=== PATIENT | male | born 1955 | race Caucasian/White ===

== ENCOUNTER 2020-02-07 11:09 | Outpatient (CLI) | payer MEDICARE, SELFPAY ==
--- NOTE | ~2020-02-07 | XR_ITS ---
XR abdomen obstructive series DATE: 02/07/2020 11:34 INDICATION: Constipation. Intermittent nausea and vomiting for 4 months TECHNIQUE: Supine and upright AP views COMPARISON: 08/09/2019 obstructive series FINDINGS: Again noted are multiple gas-containing small bowel segments overlying the left upper and m idabdomen in particular. There is a prominent amount of fecal material in the right colon. No intrape ritoneal free air is evident. The psoas shadows are intact. No visceromegaly is detected. Included skeletal structures are unremarkable other than some degenerative changes of the lumbar spin e. IMPRESSION: Nonspecific nondilated gas containing small bowel segments overlying left upper and mid a bdomen, which may represent mild adynamic ileus or mild partial small bowel obstruction; little inter sacha change since 08/09/2019 Reviewed, dictated and finalized at [facility]. Reviewed, dictated and finalized at location [facility]. IMPRESSION: Nonspecific nondilated gas containing small bowel segments overlyin g left upper and mid abdomen, which may represent mild adynamic ileus or mild p artial small bowel obstruction; little interval change since 08/09/2019
[2020-02-07 11:29] LABS: Add Urine Microscopic? YES; Appearance Urine Clear (Clear); Bilirubin Urine Negative (Negative); Blood Urine 1+ (Negative); Color Urine Amber (Yellow); Glucose Urine UA Negative (Negative); Ketones Urine Negative (Negative); Leukocyte Esterase Ur Negative (Negative); Nitrate Urine Negative (Negative); Protein Urine Trace (Negative); Urobilinogen Urine 0.2 mg/dL (0.2-1.0); pH Urine 6.5 (5.0-8.0)
[2020-02-07 11:32] LABS: Bacteria Urine Trace /hpf; Squamous Epithelial Cell Urine Rare /hpf (Few); WBC Urine None seen /hpf (0-3)
[2020-02-07 11:33] LABS: Mucus Urine Few /lpf
[2020-02-07 12:02] LABS: Alanine Aminotransferase 24 U/L (16-63); Albumin Level 2.8 g/dL (3.4-5.0); Alkaline Phosphatase 101 U/L (46-116); Anion Gap 12.4 mmol/L (7-16); Aspartate Amino Transferase 26 U/L (15-37); Bilirubin,Total 0.7 mg/dL (0.00-1.00); Blood Urea Nitrogen 30 mg/dL (7-18); Calcium 8.8 mg/dL (8.5-10.1); Carbon Dioxide 29 mmol/L (21-32); Chloride 103 mmol/L (98-108); Estimated Glomerular Filt Rate > 60; Glucose 87 mg/dL (70-99); Osmolality Calculated 295 mOsm/kg (285-295); Potassium 4.4 mmol/L (3.5-5.1); Sodium 140 mmol/L (136-145); Thyroid Stimulating Hormone 10.17 uIU/mL (0.36-3.74); Total Protein 6.3 g/dL (6.4-8.2)
== END 2020-02-07 11:10 | disposition home or self-care (01) ==
PROVIDERS: PCP Family Medicine; Visit Provider Family Medicine
DX: R41.82 Altered mental status, unspecified (principal); E03.8 Other specified hypothyroidism; R30.0 Dysuria
CPT/HCPCS: 36415; 74019; 80053; 81001; 84443; 87086

== ENCOUNTER 2020-02-21 14:36 | Outpatient (CLI) | payer MEDICARE, SELFPAY ==
--- NOTE | ~2020-02-21 | XR_ITS ---
EXAMINATION: XR chest 2V DATE: 02/21/2020 14:52 INDICATION: Cough and shortness of breath TECHNIQUE: Frontal and lateral views of the chest are obtained COMPARISON: 09/10/2019 FINDINGS: There are subtle opacities in the mid and lower lung zones, left greater than right. A righ t subclavian Port-A-Cath ends with its tip in the distal superior vena cava. There is no pleural effu alanna or pneumothorax. The cardiomediastinal silhouette is normal. There is mild thoracic spondylosis. Healed right-sided rib fractures are noted. IMPRESSION: 1. Subtle opacities in the mid and lower lung zones, left greater than right, consistent with atelect asis versus pneumonia. Reviewed, dictated and finalized at location [facility]. IMPRESSION: 1. Subtle opacities in the mid and lower lung zones, left greater than right, c onsistent with atelectasis versus pneumonia.
[2020-02-21 14:46] LABS: Hematocrit 31.8 % (40.0-54.0); Hemoglobin 10.1 g/dL (14.0-18.0); Mean Corpuscular HGB Conc 31.8 g/dL (32.0-36.0); Mean Corpuscular Volume 107.1 fL (78.0-102.0); Mean Platelet Volume 10.7 fl (8.7-11.0); Platelet Count Result 313 K/mm3 (150-420); Red Blood Count 2.97 M/mm3 (4.70-6.10); Red Cell Distribution Width 20.4 % (11.6-14.4); White Blood Count 5.2 K/mm3 (4.8-10.8)
[2020-02-21 15:04] LABS: Total Cells Counted 100
[2020-02-21 15:05] LABS: Band Neutrophils Percent 0 % (0-6); Basophils Percent Manual 0 % (0-1); Eosinophils Absolute Manual 0.05 K/mm3 (0.02-0.5); Eosinophils Percent Manual 1 % (1-6); Lymphocytes Absolute Manual 0.46 K/mm3 (1.1-4.5); Lymphocytes Percent Manual 9 % (18-44); Monocytes Absolute Manual 0.72 K/mm3 (0.1-0.90); Monocytes Percent Manual 14 % (3-9); Neutrophils Absolute Manual 3.95 K/mm3 (1.3-6.7); Neutrophils Percent Manual 76 % (46-73); Platelet Estimate Adequate (Adequate)
[2020-02-21 15:43] LABS: Alanine Aminotransferase 27 U/L (16-63); Alkaline Phosphatase 114 U/L (46-116); Anion Gap 10.4 mmol/L (7-16); Aspartate Amino Transferase 21 U/L (15-37); Bilirubin,Total 0.6 mg/dL (0.00-1.00); Blood Urea Nitrogen 14 mg/dL (7-18); Calcium 8.8 mg/dL (8.5-10.1); Carbon Dioxide 29 mmol/L (21-32); Chloride 104 mmol/L (98-108); Estimated Glomerular Filt Rate > 60; Glucose 115 mg/dL (70-99); Osmolality Calculated 289 mOsm/kg (285-295); Potassium 4.4 mmol/L (3.5-5.1); Sodium 139 mmol/L (136-145); Total Protein 6.2 g/dL (6.4-8.2)
== END 2020-02-21 14:37 | disposition home or self-care (01) ==
LOC: CHSLAB 14:38
PROVIDERS: PCP Family Medicine; Visit Provider Family Medicine
DX: R05 Cough (principal)
CPT/HCPCS: 36415; 71046; 80053; 85025

== ENCOUNTER 2020-03-12 11:43 | Emergency (ER) | payer MEDICARE, SELFPAY ==
[2020-03-12 12:22] VITALS: BP 128/67; PULSE 74; RESP 14; TEMP 36.7; O2SAT 98
--- NOTE | 2020-03-12 12:48 | ED.GENADULT ---
HPI - General Adult General Chief complaint: Unspecified Stated complaint: inhaler ran out Time Seen by Provider: 03/12/20 12:48 Source: patient Mode of arrival: ambulatory Limitations: no limitations History of Present Illness HPI narrative: Suresh Krause is a 64 yo male with a history of DM, throat CA, COPD, who comes to express care for renewal of inhaler. Related Data Home Medications Medication Instructions Recorded Confirmed albuterol sulfate 90 mcg/actuation 1 inhalation INHALATION Q4-6H PRN 12/13/19 03/12/20 breath activated powder inhaler,sensor clopidogrel 75 mg tablet 75 mg PO DAILY 12/13/19 03/12/20 fluoxetine 10 mg capsule 10 mg PO DAILY 12/13/19 03/12/20 gemfibrozil 600 mg tablet 600 mg PO BID 12/13/19 03/12/20 glimepiride 4 mg tablet 4 mg PO QAM 12/13/19 03/12/20 levothyroxine 200 mcg capsule 200 mcg PO DAILY 12/13/19 03/12/20 lovastatin 40 mg tablet 40 mg PO DAILY 12/13/19 03/12/20 metformin 1,000 mg tablet 1,000 mg PO BID 12/13/19 03/12/20 montelukast 10 mg tablet 10 mg PO DAILY 12/13/19 03/12/20 omeprazole 20 mg capsule,delayed 20 mg PO DAILY 12/13/19 03/12/20 release verapamil 180 mg 24 hr 180 mg PO DAILY 12/13/19 03/12/20 capsule,extended release Allergies Allergy/AdvReac Type Severity Reaction Status Date / Time Penicillins Allergy Severe Anaphylactic Verified 03/12/20 12:35 Shock Sulfa (Sulfonamide Allergy Intermediate Rash Verified 03/12/20 12:35 Antibiotics) erythromycin base Allergy Mild ??? Verified 03/12/20 12:35 RIDIMYCIN---PT UNABLE TO Allergy Mild Unknown Uncoded 12/13/19 10:16 GIVE CORRECT SPELLING Review of Systems Review of Systems: Narrative: CONSTITUTIONAL: Denies fever, chills, sweats. EYES: Denies visual changes, redness, discharge. ENT: Denies rhinorrhea, congestion, sore throat, otalgia. CARDIOVASCULAR: Denies chest pain, palpitations, edema. RESPIRATORY: Has dyspnea, has wheezing, no cough uses albuterol to control the symptoms GASTROINTESTINAL: Denies abdominal pain, nausea, vomiting, diarrhea. GENITOURINARY: Denies dysuria, hematuria, abnormal discharge SKIN: Denies rash or itching. NEUROLOGIC: Denies numbness, or focal weakness. PSYCHIATRIC: Denies anxiety or depression. [facility] Family History Family History Other Diabetes mellitus Heart disease Hypertension Social History Social History (Updated 03/12/20 @ 12:55 by Lola Pascal CNP) Smoking packs per day: 0.5 Smoking cigarettes per day: 10.0 Smoking status: Current every day smoker Tobacco type: cigarettes Alcohol intake: never Exam Narrative: Exam Narrative: GENERAL: Frail, pale, well-developed patient, in mild distress. HEAD: normocephalic, atraumatic. EYES: Sclera clear/white. Vision is grossly intact. EARS: External ears normal. Hearing grossly intact. NOSE: External nose normal without nasal discharge, nares without redness, no rhinorrhea. THROAT: Mucous membranes moist, NECK: Neck supple, CARDIOVASCULAR: Regular rate and rhythm without murmurs, gallops, or rubs. RESPIRATORY: Diminished to auscultation. Decreased breath sounds equal bilaterally. RR30 Has wheezes, no rales, or rhonchi. GASTROINTESTINAL: Abdomen soft, SKIN: warm, intact with no suspicious lesions or rash, good texture and turgor. NEURO: awake, alert, and oriented to person, place and time. There were no obvious focal neurologic abnormalities. Steady gait EXTREMITIES: Normal range of motion. BACK: Nontender without deformity Course Course Emergency Course: Renewed albuterol inhaler with a single refill. Patient is aware of the effects of his smoking on his COPD and has current diagnosis of throat cancer, is having some difficulties with nutrition but will continue to discuss this with his chemo doctor Vital Signs Vital signs: Vital Signs Temperature 98.0 F 03/12/20 12:22 Pulse Rate 74 03/12/20 12:22 Respiratory Rate 14
== END 2020-03-12 13:04 | disposition home or self-care (01) ==
PROVIDERS: Emergency Provider Nurse Practitioner; PCP Family Medicine
DX: J43.9 Emphysema, unspecified (principal); F17.210 Nicotine dependence, cigarettes, uncomplicated; E11.8 Type 2 diabetes mellitus with unspecified complications; C14.0 Malignant neoplasm of pharynx, unspecified
CPT/HCPCS: 99213; G0463

== ENCOUNTER 2020-03-13 14:30 | Outpatient (CLI) | payer MEDICARE, SELFPAY ==
--- NOTE | 2020-03-13 14:30 | ECHO_ITS ---
Patient Info Name: Suresh Krause Age: 64 years : 1955 Gender: Male Ht: 72 in Wt: 185 lbs BSA: 2.07 m2 HR: 70 bpm BP: 146 / 72 mmHg Heart Rhythm: Sinus Rhythm Technical Quality: Good Exam Date: 03/13/2020 2:42 PM Exam Location: [facility], [place] Patient Status: Outpatient Admit Date: 03/13/2020 Staff Ordering Physician: Manish Diallo MD Curtain Fitter: Kam Byrnes RDCS Attending Provider: Manish Diallo MD Referring Physician: Imani PEARCE; Exam Type: CA echo doppler color flow Study Info Indications I10 - Essential (primary) hypertension Complete two-dimensional, color flow and Doppler transthoracic echocardiogram is performed. Strain analysis performed. History/Risk Factors Hypertension; COPD. Summary 1. Left ventricular systolic function is normal with estimated at 50-55%. 2. Left ventricular chamber dimension is moderately enlarged. 3. Left ventricular septal wall motion is abnormal with septal motion related to bundle branch block. 4. The left ventricular diastolic function is grade I diastolic dysfunction. 5. E/e' 11 is mildly elevated. 6. Global longitudinal strain is abnormal at -13.8%. 7. Left atrial chamber dimension is moderately enlarged. 8. There is mild aortic valve sclerosis. 9. There is mild aortic valve regurgitation. 10. There is trace mitral valve regurgitation. 11. There is trace tricuspid valve regurgitation. 12. No pulmonary hypertension, estimated pulmonary arterial systolic pressure is 37 mmHg. Left Ventricle E/e' 11 is mildly elevated. Global longitudinal strain is abnormal at -13.8%. Left ventricular systolic function is normal with estimated at 50-55%. Left ventricular chamber dimension is moderately enlarged. Left ventricular septal wall motion is abnormal with septal motion related to bundle branch block. The left ventricular diastolic function is grade I diastolic dysfunction. Right Ventricle Right ventricular chamber dimension is normal. Right ventricular systolic function is normal. Left Atria Left atrial chamber dimension is moderately enlarged. Right Atria Right atrial chamber dimension is normal. Aortic Valve The aortic valve is trileaflet. There is mild aortic valve sclerosis. There is no aortic valve stenosis. There is mild aortic valve regurgitation. Pulmonic Valve There is no pulmonic regurgitation. Mitral Valve There is no mitral valve stenosis. There is trace mitral valve regurgitation. Tricuspid Valve There is trace tricuspid valve regurgitation. No pulmonary hypertension, estimated pulmonary arterial systolic pressure is 37 mmHg. Pericardium/Pleural There is no pericardial effusion. Inferior Vena Cava Normal inferior vena cava with >50% collapse upon inspiration consistent with normal right atrial pressure, 5 mmHg. Aorta The aortic root size at the sinus of Valsalva is normal. Left Ventricular Outflow Tract Name Value Normal LVOT 2D LVOT Diameter 1.9 cm LVOT Doppler LVOT Peak Velocity 128 cm/s LVOT Peak Gradient 7 mmHg LV
== END 2020-03-13 14:31 | disposition home or self-care (01) ==
PROVIDERS: PCP Family Medicine; Visit Provider Family Medicine
DX: I10 Essential (primary) hypertension (principal)
CPT/HCPCS: 93306

== ENCOUNTER 2020-03-17 10:49 | Outpatient (CLI) | payer MEDICARE, SELFPAY ==
[2020-03-17 12:09] LABS: Anion Gap 10.7 mmol/L (7-16); Carbon Dioxide 29 mmol/L (21-32); Chloride 105 mmol/L (98-108); Potassium 4.7 mmol/L (3.5-5.1); Sodium 140 mmol/L (136-145)
[2020-03-17 12:10] LABS: Blood Urea Nitrogen 14 mg/dL (7-18); Estimated Glomerular Filt Rate > 60; Glucose 82 mg/dL (70-99); Osmolality Calculated 289 mOsm/kg (285-295)
== END 2020-03-17 10:50 | disposition home or self-care (01) ==
LOC: CHSLAB 10:51
PROVIDERS: PCP Family Medicine; Visit Provider Family Medicine
DX: R60.0 Localized edema (principal)
CPT/HCPCS: 36415; 80048

== ENCOUNTER 2020-04-07 10:39 | Outpatient (CLI) | payer MEDICARE, SELFPAY ==
[2020-04-07 10:50] VITALS: PULSE 71; O2SAT 94
[2020-04-07 10:51] VITALS: PULSE 81; O2SAT 84
[2020-04-07 10:53] VITALS: PULSE 96; O2SAT 96
--- NOTE | 2020-04-07 11:07 | HOMEO2EVAL ---
Home Oxygen Evaluation RC: Home Oxygen (O2) Evaluation Start: 04/07/20 10:59 Freq: Status: Active Protocol: RPE Activity Type Activity Date Activity User E-Sign Co-Sign Detail Recorded Client Recorded Date Recorded By Document 04/07/20 10:50 ESCOBAR [id number] 04/07/20 11:07 SJB Document 04/07/20 10:51 SJB [id number] 04/07/20 11:07 SJB Document 04/07/20 10:53 SJB [id number] 04/07/20 11:07 SJB 04/07/20 04/07/20 04/07/20 10:50 10:51 10:53 Home O2 Evaluation Test Phase Resting Exercise Exercise Oxygen Delivery Room Air Room Air Nasal Cannula Oxygen Flow Rate (L/min) 2 Pulse Oximetry (90-100 %) 94 84 L 96 Pulse Rate (60-100 beats/min) 71 81 96 Activity Tolerance Fair Poor Rating of Perceived Dyspnea (PD) +2 Mild, Some +3 Moderate +4 Severe Difficulty, Difficulty, But Difficulty, Noticeable to Can Continue Participant the Observer Cannot Continue Rate of Perceived Exertion (PE) 11 Fairly light 13 Somewhat 20 Hard Ambulation Distance (feet) 120 180 Home Oxygen Evaluation Comments 02 started at 2 Pt continued lpm and walk walk up to 180 continued. and then requested to stop and sit in wheelchair. Stated could not go any further. Pts sp02 remained 95-96% at this time on 2 lpm. Heart rate stayed at 96. Treatment Charges O2 Evaluation
== END 2020-04-07 10:40 | disposition home or self-care (01) ==
PROVIDERS: PCP Family Medicine; Visit Provider Family Medicine
DX: R06.02 Shortness of breath (principal)
CPT/HCPCS: 94618

== ENCOUNTER 2020-05-10 09:59 | Outpatient (CLI) | payer MEDICARE, SELFPAY ==
--- NOTE | ~2020-05-10 | XR_ITS ---
EXAMINATION: XR chest 2V DATE: 05/10/2020 10:27 INDICATION: Pleural effusion TECHNIQUE: Frontal and lateral views of the chest are obtained COMPARISON: 02/21/2020 FINDINGS: Interstitial and airspace opacities are present in the mid and lower lung zones. There are small pleural effusions. No pneumothorax is identified. A right internal jugular Port-A-Cath ends wit h its tip in the distal superior vena cava. The cardiomediastinal silhouette is normal. Healed right- sided rib fractures are noted. IMPRESSION: 1. Small pleural effusions. 2. Interstitial and airspace opacities of the mid and lower lung zones, consistent with pulmonary wendy ma and/or pneumonia and/or atelectasis. Reviewed, dictated and finalized at location [facility]. IMPRESSION: 1. Small pleural effusions. 2. Interstitial and airspace opacities of the mid and lower lung zones, consist ent with pulmonary edema and/or pneumonia and/or atelectasis.
== END 2020-05-10 10:00 | disposition home or self-care (01) ==
LOC: CHSIMG 10:01
PROVIDERS: PCP Family Medicine; Visit Provider Family Medicine
DX: J90 Pleural effusion, not elsewhere classified (principal)
CPT/HCPCS: 71046

== ENCOUNTER 2020-07-17 06:10 | Emergency (ER) | payer MEDICARE, SELFPAY ==
--- NOTE | ~2020-07-17 | XR_ITS ---
EXAMINATION: XR shoulder RT min 2V EXAM DATE: 07/17/2020 07:13 INDICATION: Ground-level fall, right shoulder pain, Initial encounter. TECHNIQUE: The following right shoulder projections obtained: frontal projection with internal rotati on, frontal projection with external rotation, Grashey, and scapular Y view (4+ views). There is no prior study for comparison. FINDINGS: Right-sided CT injectable portacatheter. No evidence of right shoulder rotator cuff calcif ic tendinosis. There are no acute fractures or dislocations identified. There is no subcutaneous ga s. The soft tissue is unremarkable. There are no radiopaque foreign bodies. 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 IMPRESSION: 1. Right shoulder exam without acute osseous findings. Reviewed, dictated and finalized at location [facility]. RING DISTRIBUTION CLERK
--- NOTE | ~2020-07-17 | XR_ITS ---
EXAMINATION: XR ribs LT 2V w CXR 2V EXAM DATE: 07/17/2020 07:13 INDICATION: GLF w/ LEft ant TTP . Ground level fall this am left ant superior rib pain. TECHNIQUE: Frontal projection of the upper left ribs, frontal projection of the lower left ribs, obli que projection of the left ribs, frontal and lateral chest x-ray(s) for interpretation. Comparison is made to prior examination from 05/10/2020. FINDINGS: There are no displaced acute left rib fractures identified. There is no soft tissue abnor mality seen. Right 7th and 8th rib fractures which are likely chronic. Small to moderate right-sided subpulmonic pleural effusion, adjacent atelectasis. There is also left basilar subsegmental atelectas is. There is a right-sided portacatheter. Cardiomediastinal silhouette is normal. IMPRESSION: 1. No displaced left rib fractures. Chronic right rib fractures. 2. Small to moderate right subpulmonic pleural effusion. 3. Bibasilar atelectasis. Reviewed, dictated and finalized at location A. ICAL SECRETARY
[2020-07-17 06:28] VITALS: BP 156/87; PULSE 81; RESP 20; TEMP 36.6; O2SAT 100
--- NOTE | 2020-07-17 06:37 | WC.ED.TRAUMA ---
HPI - Trauma General Chief Complaint: Extremity Injury, Upper Stated Complaint: 65 YO male w/ known h.o DMII, COPD, HTN fell over dog hit chest on bed post approx 2 hours before to arrival to ER for eval. PAtient is here w/ his x- c/o Right shoulder and left chest wall pain. Denies LOC or HEad injury Source: patient and family Mode of arrival: ambulatory Limitations: no limitations History of Present Illness MD complaint: fall and pain Onset (ago): hour(s) (2 hours) Loss of Consciousness: no Location: chest Location - Extremities: Right: shoulder (ANterior and lateral) Severity: moderate Severity scale (1-10): 6 Context: fall Associated symptoms: denies other symptoms Related Data Home Medications Medication Instructions Recorded Confirmed albuterol sulfate 90 mcg/actuation 1 inhalation INHALATION Q4-6H PRN 12/13/19 07/17/20 breath activated powder inhaler,sensor clopidogrel 75 mg tablet 75 mg PO DAILY 12/13/19 07/17/20 gemfibrozil 600 mg tablet 600 mg PO BID 12/13/19 07/17/20 glimepiride 4 mg tablet 4 mg PO QAM 12/13/19 07/17/20 levothyroxine 200 mcg capsule 200 mcg PO DAILY 12/13/19 07/17/20 lovastatin 40 mg tablet 40 mg PO HS 12/13/19 07/17/20 metformin 1,000 mg tablet 1,000 mg PO BID 12/13/19 07/17/20 montelukast 10 mg tablet 10 mg PO DAILY 12/13/19 07/17/20 omeprazole 20 mg capsule,delayed 40 mg PO DAILY 12/13/19 07/17/20 release verapamil 180 mg 24 hr 180 mg PO DAILY 12/13/19 07/17/20 capsule,extended release atorvastatin 40 mg PO DAILY 07/17/20 07/17/20 beclomethasone dipropionate [Qvar] 80 mcg INHALATION DAILY 07/17/20 07/17/20 clindamycin phosphate [Clindagel] 1 applic TOPICAL BID 07/17/20 07/17/20 famotidine 20 mg PO DAILY 07/17/20 07/17/20 fluoxetine 20 mg PO DAILY 07/17/20 07/17/20 fluticasone propionate 2 spray INTRANASAL DAILY 07/17/20 07/17/20 levothyroxine 25 mcg PO QAM 07/17/20 07/17/20 lorazepam 0.5 mg PO Q4-6H PRN 07/17/20 07/17/20 montelukast 10 mg PO DAILY 07/17/20 07/17/20 nystatin 15 ml MUCOUS MEMBRANE PRN PRN 07/17/20 07/17/20 ondansetron 8 mg PO Q8H PRN 07/17/20 07/17/20 pioglitazone 30 mg PO DAILY 07/17/20 07/17/20 potassium chloride 10 meq PO DAILY 07/17/20 07/17/20 prochlorperazine maleate 10 mg PO Q6H PRN 07/17/20 07/17/20 [Compazine] triamcinolone acetonide [Kenalog] 1 applic TOPICAL BID 07/17/20 07/17/20 Allergies Allergy/AdvReac Type Severity Reaction Status Date / Time Penicillins Allergy Severe Anaphylactic Verified 03/12/20 12:35 Shock Sulfa (Sulfonamide Allergy Intermediate Rash Verified 03/12/20 12:35 Antibiotics) erythromycin base Allergy Mild ??? Verified 03/12/20 12:35 RIDIMYCIN---PT UNABLE TO Allergy Mild Unknown Uncoded 12/13/19 10:16 GIVE CORRECT SPELLING Review of Systems Constitutional: Constitutional: Reports no additional constitutional complaints Eyes: Eyes: Reports no additional eye complaints ENT: Reports system reviewed and no additional complaints, except as documented Cardiovascular: Cardiovascular: Reports no additional cardiovascular complaints Respiratory: Respiratory: Reports no additional respiratory complaints Gastrointestinal: Gastrointestinal: Reports no additional gastrointestinal complaints Genitourinary: Genitourinary: Reports no additional male genitourinary complaints Musculoskeletal: Musculoskeletal: Reports arthralgias (Right Shoulder Pain, Left CHest pain) Integumentary/Breasts: Skin/Breast: Reports system reviewed and no additional complaints, except as docu Neurologic: Reports system reviewed and no additional complaints, except as documented Psychiatric: Psychiatric: Reports no additional psychiatric complaints Endocrine: Endocrine: Reports no additional endocrine complaints Hematologic/Lymphatic: Hematologic/Lymphatic: Reports no additional hematologic/lymphatic complaints Allergic/Immunologic: Allergic/Immunologic: Reports no additional allergic/immunologic complaints PMFSH Past Medical History M
[2020-07-17 07:40] VITALS: BP 143/84; PULSE 82; RESP 20; O2SAT 96
== END 2020-07-17 07:41 | disposition home or self-care (01) ==
PROVIDERS: Emergency Provider Emergency Medicine; PCP Family Medicine
DX: S20.211A Contusion of right front wall of thorax, initial encounter (principal); S40.011A Contusion of right shoulder, initial encounter; W01.0XXA Fall on same level from slipping, tripping and stumbling without subsequent striking against object, initial encounter
CPT/HCPCS: 71046; 71100; 73030; 99282; 99284

== ENCOUNTER 2020-08-11 16:20 | Outpatient (CLI) | payer MEDICARE, SELFPAY ==
[2020-08-11 17:14] LABS: Influenza Control Valid (Valid); SARS-CoV-2 Ag Negative (Negative)
== END 2020-08-11 16:21 | disposition home or self-care (01) ==
LOC: CHSLAB 16:25
PROVIDERS: PCP Family Medicine; Visit Provider Family Medicine
DX: J00 Acute nasopharyngitis [common cold] (principal); Z20.828 Contact with and (suspected) exposure to other viral communicable diseases
CPT/HCPCS: 87081; 87426; 87804; 87880

== ENCOUNTER 2020-08-29 13:54 | Emergency (ER) | payer MEDICARE, SELFPAY ==
[2020-08-29] VITALS (14 sets, daily range): BP systolic 137–164; BP diastolic 80–114; PULSE 53–82; RESP 12–25; TEMP 36.6; O2SAT 97–100
--- NOTE | 2020-08-29 15:05 | ED.SOB ---
HPI - SOB/Dyspnea General Chief Complaint: Upper Respiratory Infection Stated Complaint: coughing up blood Time Seen by Provider: 08/29/20 13:57 Source: patient, family and RN notes reviewed Mode of arrival: wheelchair Limitations: no limitations History of Present Illness HPI Narrative: patient states that he is coughing today and 3 times he had blood with coughing. He has a history of throat cancer. Recently was told that it was terminal and gave him 6 months to live. There is post be contacting hospice but have not done so yet. When he initially got told about the cancer he had stopped smoking but since he has been told he has terminal he has started smoking again. MD elicited complaint: cough Pertinent past history: COPD Onset (ago): hour(s) (2) Timing: intermittent Severity: moderate Exacerbating factors: coughing Relieving factors: nothing Known history of: COPD and other ( Throat cancer) Treatment prior to arrival: none Related Data Home Medications Medication Instructions Recorded Confirmed albuterol sulfate 90 mcg/actuation 1 inhalation INHALATION Q4-6H PRN 12/13/19 08/29/20 breath activated powder inhaler,sensor clopidogrel 75 mg tablet 75 mg PO DAILY 12/13/19 08/29/20 gemfibrozil 600 mg tablet 600 mg PO BID 12/13/19 08/29/20 glimepiride 4 mg tablet 4 mg PO QAM 12/13/19 08/29/20 levothyroxine 200 mcg capsule 200 mcg PO DAILY 12/13/19 08/29/20 lovastatin 40 mg tablet 40 mg PO HS 12/13/19 08/29/20 metformin 1,000 mg tablet 1,000 mg PO BID 12/13/19 08/29/20 montelukast 10 mg tablet 10 mg PO DAILY 12/13/19 08/29/20 omeprazole 20 mg capsule,delayed 40 mg PO DAILY 12/13/19 08/29/20 release verapamil 180 mg 24 hr 180 mg PO DAILY 12/13/19 08/29/20 capsule,extended release atorvastatin 40 mg PO DAILY 07/17/20 08/29/20 beclomethasone dipropionate [Qvar] 80 mcg INHALATION DAILY 07/17/20 08/29/20 clindamycin phosphate [Clindagel] 1 applic TOPICAL BID 07/17/20 08/29/20 famotidine 20 mg PO DAILY 07/17/20 08/29/20 fluoxetine 20 mg PO DAILY 07/17/20 08/29/20 fluticasone propionate 2 spray INTRANASAL DAILY 07/17/20 08/29/20 levothyroxine 25 mcg PO QAM 07/17/20 08/29/20 lorazepam 0.5 mg PO Q4-6H PRN 07/17/20 08/29/20 montelukast 10 mg PO DAILY 07/17/20 08/29/20 nystatin 15 ml MUCOUS MEMBRANE PRN PRN 07/17/20 08/29/20 ondansetron 8 mg PO Q8H PRN 07/17/20 08/29/20 pioglitazone 30 mg PO DAILY 07/17/20 08/29/20 potassium chloride 10 meq PO DAILY 07/17/20 08/29/20 prochlorperazine maleate 10 mg PO Q6H PRN 07/17/20 08/29/20 [Compazine] triamcinolone acetonide [Kenalog] 1 applic TOPICAL BID 07/17/20 08/29/20 Allergies Allergy/AdvReac Type Severity Reaction Status Date / Time Penicillins Allergy Severe Anaphylactic Verified 03/12/20 12:35 Shock Sulfa (Sulfonamide Allergy Intermediate Rash Verified 03/12/20 12:35 Antibiotics) erythromycin base Allergy Mild ??? Verified 03/12/20 12:35 RIDIMYCIN---PT UNABLE TO Allergy Mild Unknown Uncoded 12/13/19 10:16 GIVE CORRECT SPELLING Review of Systems Constitutional: Constitutional: Denies chills, Denies fever(s) and Reports weakness Eyes: Eyes: Reports no additional eye complaints ENT: Reports system reviewed and no additional complaints, except as documented and Reports as per HPI Cardiovascular: Cardiovascular: Reports no additional cardiovascular complaints Respiratory: Respiratory: Reports as per HPI Gastrointestinal: Gastrointestinal: Reports no additional gastrointestinal complaints Genitourinary: Genitourinary: Reports no additional male genitourinary complaints Musculoskeletal: Musculoskeletal: Reports no additional musculoskeletal complaints Integumentary/Breasts: Skin/Breast: Reports system reviewed and no additional complaints, except as docu Neurologic: Reports system reviewed and no additional complaints, except as documented Psychiatric: Psychiatric: Reports no additional psychiatric complaints Endocrine: Endocrine: Reports no additional
[2020-08-29 15:37] LABS: Basophils Absolute Auto 0.03 K/mm3 (0.00-0.10); Basophils Percent Auto 0.5 % (0.0-1.0); Eosinophils Percent Auto 1.8 % (1.0-6.0); Hematocrit 33.9 % (40.0-54.0); Hemoglobin 10.2 g/dL (14.0-18.0); Immature Granulocyte Absolute 0.02 K/mm3 (0.00-0.00); Immature Granulocyte Percent A 0.4 % (0.0-0.0); Lymphocytes Absolute Auto 0.57 K/mm3 (1.10-4.50); Mean Corpuscular HGB Conc 30.1 g/dL (32.0-36.0); Mean Corpuscular Hemoglobin 28.3 pg (27.0-31.0); Mean Corpuscular Volume 94.2 fL (78.0-102.0); Mean Platelet Volume 9.8 fl (8.7-11.0); Monocytes Absolute Auto 0.36 K/mm3 (0.10-0.90); Monocytes Percent Auto 6.3 % (2.0-11.0); Neutrophils Absolute Auto 4.6 K/mm3 (1.7-7.2); Platelet Count Result 236 K/mm3 (150-420); Red Cell Distribution Width 14.1 % (11.6-14.4); White Blood Count 5.7 K/mm3 (4.8-10.8)
[2020-08-29 15:51] LABS: INR 1.1; Prothrombin Time 11.6 Seconds (9.50-12.10)
[2020-08-29 15:52] LABS: Alanine Aminotransferase 9 U/L (16-63); Albumin Level 2.6 g/dL (3.4-5.0); Alkaline Phosphatase 85 U/L (46-116); Anion Gap -1 mmol/L (8-16); Aspartate Amino Transferase 13 U/L (15-37); Bilirubin,Total 0.3 mg/dL (0.00-1.00); Blood Urea Nitrogen 13 mg/dL (7-18); Calcium 11.3 mg/dL (8.5-10.1); Carbon Dioxide 36 mmol/L (21-32); Chloride 104 mmol/L (98-108); Estimated CRCL calculation 57 ml/min; Estimated Glomerular Filt Rate 57; Glucose 92 mg/dL (70-99); Osmolality Calculated 288 mOsm/kg (285-295); Potassium 3.9 mmol/L (3.5-5.1); Sodium 139 mmol/L (136-145); Total Protein 6.6 g/dL (6.4-8.2)
== END 2020-08-29 16:25 | disposition home or self-care (01) ==
PROVIDERS: Emergency Provider Emergency Medicine; PCP Family Medicine
DX: C32.9 Malignant neoplasm of larynx, unspecified (principal); J44.9 Chronic obstructive pulmonary disease, unspecified; E11.9 Type 2 diabetes mellitus without complications; F17.200 Nicotine dependence, unspecified, uncomplicated
CPT/HCPCS: 36415; 80053; 85025; 85610; 85730; 99282; 99284